=== PATIENT | male | born 1950 | race Caucasian/White ===

== ENCOUNTER 2023-09-27 01:45 | Inpatient (IN) | payer MEDICARE, OTHER ==
[2023-09-27] MEDS ORDERED: Fentanyl CADD 100 ML IV SCH (02:00)
[2023-09-27] MEDS ORDERED: Ipratropium/Albuterol 3 ML NEB ONE (02:02)
[2023-09-27] MEDS ORDERED: Pantoprazole 40 MG VIAL ONE (02:02)
[2023-09-27] MEDS ORDERED: Piperacillin/Tazobactam 3.375 GM VIAL ONE (02:02)
[2023-09-27] MEDS ORDERED: Sodium Chloride 0.9% 100 ML ONE (02:02)
[2023-09-27 02:14] LABS: INR-International Normal Ratio 1.5; Prothrombin Time 18.5 sec (12.0-14.7)
[2023-09-27 02:15] LABS: ALT (SGPT) 77 U/L (8-55); AST (SGOT) 52 U/L (5-34); Albumin 2.8 g/dL (3.4-4.8); Alkaline Phosphatase 152 U/L (40-110); Anion Gap 16 mmol/L (10-20); BUN (Urea Nitrogen) 45 mg/dL (8.4-25.7); Bilirubin, Total 0.7 mg/dL (0.2-1.2); Calc. Creatinine Clearance 0 mL/min (70-130); Calcium 9.2 mg/dL (7.8-10.44); Carbon Dioxide 26 mmol/L (23-31); Chloride 106 mmol/L (98-107); Estimated GFR 78; Globulin 3.5 g/dL (2.4-3.5); Glucose 190 mg/dL (83-110); PTT 26.4 sec (22.9-36.1); Potassium 4.5 mmol/L (3.5-5.1); Protein, Total 6.3 g/dL (5.8-8.1); Sodium 143 mmol/L (136-145)
[2023-09-27 02:19] LABS: Troponin I 0.017 ng/mL (< 0.028)
[2023-09-27 02:20] LABS: Actual Bicarbonate (HCO3a) 27.8 mEq/L (22-28); Analyzer IN Cardio ER; Base Excess (BEa) 0.4 mEq/L (-2.0 to +3.0); CO2 Tension 58.4 mmHg (35.0-45.0); Calcium, Ionized (arterial) 1.21 mmol/L (1.12-1.30); Hematocrit-ABG 35 % (42.0-52.0); Hemoglobin (Hb) 11.9 g/dL (14.0-18.0); O2 Tension (PaO2), arterial 102.2 mmHg (> 70.0); Potassium - ABG Lab 4.29 mmol/L (3.70-5.30); pH, Arterial 7.296 (7.35-7.45)
[2023-09-27 02:22] LABS: Puncture Site RBA
[2023-09-27 02:27] LABS: Bacteria/HPF None Seen HPF (None Seen); Bilirubin Negative (Negative); Blood, Urine 2+ (Negative); CAUTI Indications for Culture Alt mental st,lethar; Clarity Clear (Clear); Glucose, Urine (Dipstick) Normal (Negative); Ketone, Urine Negative (Negative); Leukocyte Negative Leu/uL (Negative); Nitrite Negative (Negative); Protein, Urine (Dipstick) 30 mg/dL (Neg-Trace); RBC/HPF 21-50 HPF (0-3); Squamous Epithelial 0-3 HPF (0-3); pH, Urine 5.5 (5.0-9.0)
[2023-09-27 02:29] LABS: Band 10 % (5-11); Eosinophils 1 % (0-10); Lymphocytes 12 % (21-51); Monocytes 1 % (0-10); Neutrophil 76 % (42-75); Nucleated RBC (Manual Ct) 1 % (0); Platelet Adequacy Comment Platelets Decreased; RBC Morphology Within Normal Limits; Smudge Cells 5.9 %
[2023-09-27 02:30] LABS: Urine Culture Reflex No No
[2023-09-27 02:31] LABS: Hematocrit 34.5 % (42.0-52.0); Hemoglobin 11.3 g/dL (14.0-18.0); Mean Corpuscular HGB CONC 32.7 g/dL (32.0-36.0); Mean Corpuscular Hemoglobin 30.5 pg (27.0-31.0); Mean Corpuscular Volume 93.5 fL (78.0-98.0); Mean Platelet Volume 10.6 fL (7.4-10.4); Platelet Count 55 10x3/uL (130-400); RBC Distribution Width 14.6 % (11.5-14.5)
[2023-09-27] MEDS ORDERED: Propofol 1,000 MG/100 ML VIAL IV ONE (03:23)
[2023-09-27] MEDS ORDERED: Ondansetron PF 4 MG/2 ML Vial IVP PRN (03:30)
[2023-09-27] MEDS ORDERED: Acetaminophen 325 MG TAB PO PRN (03:30)
[2023-09-27] MEDS ORDERED: Ondansetron ODT 4 MG TAB SL PRN (03:30)
[2023-09-27] MEDS ORDERED: Propofol BOLUS 1,000 MG/100 ML VIAL IV PRN (04:00)
[2023-09-27] MEDS ORDERED: Fentanyl BOLUS 250 ML IVPB PRN (04:00)
[2023-09-27] MEDS ORDERED: Propofol 1,000 MG/100 ML VIAL IV PRN (04:00)
[2023-09-27] MEDS ORDERED: Ventilator Sedation Protocol 1 EACH FS SCH (04:00)
[2023-09-27] MEDS ORDERED: Morphine 2 MG/ML VIAL SLOW IVP PRN (04:00)
[2023-09-27] MEDS ORDERED: Lorazepam 2 MG/ML VIAL SLOW IVP PRN (04:00)
[2023-09-27 04:27] LABS: Analyzer IN Cardio ER; Base Excess (BEa) 0.1 mEq/L (-2.0 to +3.0); CO2 Tension 54.5 mmHg (35.0-45.0); Calcium, Ionized (arterial) 1.19 mmol/L (1.12-1.30); Carboxyhemoglobin (COHb) 0.3 gm% (0.0-3.0); Hematocrit-ABG 35 % (42.0-52.0); Hemoglobin (Hb) 11.9 g/dL (14.0-18.0); Potassium - ABG Lab 4.49 mmol/L (3.70-5.30); pH, Arterial 7.313 (7.35-7.45)
[2023-09-27 04:46] VITALS: BMI 25.2
[2023-09-27 04:48] LABS: Actual Bicarbonate (HCO3a) 24.9 mEq/L (22-28); Analyzer IN Cardio ER; Base Excess (BEa) -1.1 mEq/L (-2.0 to +3.0); Carboxyhemoglobin (COHb) 0.2 gm% (0.0-3.0); Hematocrit-ABG 35 % (42.0-52.0); Hemoglobin (Hb) 11.8 g/dL (14.0-18.0); Potassium - ABG Lab 4.58 mmol/L (3.70-5.30); pH, Arterial 7.342 (7.35-7.45)
[2023-09-27 04:52] LABS: Puncture Site RBA
[2023-09-27 04:53] LABS: Puncture Site LBA
[2023-09-27 04:53] LABS: ALV-art Gradient 602.575 mmHg (0-20)
[2023-09-27 05:13] LABS: Hematocrit 34.8 % (42.0-52.0); Hemoglobin 11.2 g/dL (14.0-18.0); Mean Corpuscular HGB CONC 32.2 g/dL (32.0-36.0); Mean Corpuscular Hemoglobin 29.9 pg (27.0-31.0); Mean Corpuscular Volume 92.8 fL (78.0-98.0); Mean Platelet Volume 11.5 fL (7.4-10.4); Platelet Count 50 10x3/uL (130-400); RBC Distribution Width 14.6 % (11.5-14.5); Red Blood Cell (RBC) Count 3.75 mill/uL (4.70-6.10)
[2023-09-27 05:17] LABS: Lactic Acid 3.7 mmol/L (0.5-2.2)
[2023-09-27] MEDS: methylPREDNISolone Sod Succ/PF 125 MG/2 ML VIAL IVP SCH ×2 (05:17→11:03)
[2023-09-27] MEDS: Tranexamic Acid 1,000 MG/10 ML VIAL IVP SCH (05:27)
[2023-09-27 05:39] LABS: Band 7 % (5-11); Large Platelets 0.9 % (0-5); Lymphocytes 2 % (21-51); Monocytes 5 % (0-10); Neutrophil 87 % (42-75); Platelet Adequacy Comment Platelets Decreased; RBC Morphology Within Normal Limits; Smudge Cells 5.6 %
[2023-09-27] MEDS ORDERED: Piperacillin/Tazobactam 4.5 GM in Sodium Chloride 0.9% 100 ML IVPB SCH (06:00)
[2023-09-27] MEDS: EPINEPHrine 1 MG/ML VIAL ONE (06:29)
[2023-09-27] MEDS ORDERED: EPINEPHrine 4 MG in Dextrose 5% in Water 250 ML IVP SCH (06:45)
[2023-09-27] MEDS: Tranexamic Acid 500 MG in Syringe 0 ML NEB SCH ×2 (07:40→07:41)
[2023-09-27] MEDS: Lidocaine 1% w/Epinephrine 1:100K 20 ML VIAL ONE (07:41)
[2023-09-27] MEDS: EPINEPHrine 1 MG/10 ML Abboject SYRINGE ONE (07:41)
[2023-09-27 07:54] LABS: Actual Bicarbonate (HCO3a) 17.5 mEq/L (22-28); Base Excess (BEa) -15.3 mEq/L (-2.0 to +3.0); Calcium, Ionized (arterial) 1.35 mmol/L (1.12-1.30); Potassium - ABG Lab 4.64 mmol/L (3.70-5.30)
[2023-09-27 07:56] LABS: CO2 Tension 74.8 mmHg (35.0-45.0); O2 Tension (PaO2), arterial 35.5 mmHg (> 70.0); pH, Arterial 6.986 (7.35-7.45)
[2023-09-27] MEDS: Sodium Bicarb 50 MEQ/50 ML Abboject 8.4% SYRINGE ONE (08:12)
[2023-09-27] MEDS: Sodium Bicarbonate 150 MEQ in Dextrose 5% in Water 1,000 ML IV SCH (10:22)
[2023-09-27] MEDS: Pantoprazole 40 MG VIAL IVP SCH (10:22)
[2023-09-27] MEDS: NOREPINEPHRINE 8 MG/250 ML-D5W 250 ML ONE (10:22)
[2023-09-27 10:41] LABS: Actual Bicarbonate (HCO3a) 18.6 mEq/L (22-28); Base Excess (BEa) -11.6 mEq/L (-2.0 to +3.0); Calcium, Ionized (arterial) 1.23 mmol/L (1.12-1.30); Carboxyhemoglobin (COHb) 0.3 gm% (0.0-3.0); Hematocrit-ABG 31 % (42.0-52.0); Hemoglobin (Hb) 10.6 g/dL (14.0-18.0); Potassium - ABG Lab 4.25 mmol/L (3.70-5.30)
[2023-09-27 11:02] LABS: CO2 Tension 65.5 mmHg (35.0-45.0); pH, Arterial 7.072 (7.35-7.45)
[2023-09-27] MEDS: Albumin 25% 25 GM (100 mL) BOT IVPB SCH (11:02)
[2023-09-27 11:03] LABS: ALV-art Gradient 598.125 mmHg (0-20); Puncture Site Arterial Line
[2023-09-27] MEDS ORDERED: Vasopressin In 0.9 % NaCl 40 UNIT in Premix 1 BAG IV SCH (11:45)
[2023-09-27] MEDS ORDERED: Vasopressin 20 UNITS, Admixture Fee 1 EACH in Sodium Chloride 0.9% 50 ML IV SCH (11:45)
[2023-09-27 11:53] VITALS: TEMP 97.6
[2023-09-27] MEDS: Sodium Bicarb 50 MEQ/50 ML Abboject 8.4% SYRINGE IVP SCH (11:53)
[2023-09-27] MEDS: Piperacillin/Tazobactam 4.5 GM in Sodium Chloride 0.9% 100 ML IVPB SCH (12:04)
[2023-09-27] MEDS: Piperacillin/Tazobactam 3.375 GM in Sodium Chloride 0.9% 100 ML IVPB SCH (12:08)
[2023-09-27] MEDS: NOREPINEPHRINE 8 MG/250 ML-D5W 250 ML IVPB SCH (12:56)
[2023-09-27] MEDS ORDERED: Sodium Bicarbonate 150 MEQ in Dextrose 5% in Water 1,000 ML IV SCH (13:38)
[2023-09-30 09:33] LABS: O2 Tension (PaO2), arterial 42.3 mmHg (> 70.0)
== END 2023-09-27 17:22 | disposition expired | DRG 208 ==
LOC: ERS 01:45 → CCU 01:47
PROVIDERS: ADMIT Emergency Medicine; ATTEND Emergency Medicine
PROC: 5A12012 Performance of Cardiac Output, Single, Manual (ICD-10-PCS; principal; 2023-09-27)
PROC: 5A1935Z Respiratory Ventilation, Less than 24 Consecutive Hours (ICD-10-PCS; 2023-09-27)
PROC: 05HM33Z Insertion of Infusion Device into Right Internal Jugular Vein, Percutaneous Approach (ICD-10-PCS; 2023-09-27)
PROC: B543ZZA Ultrasonography of Right Jugular Veins, Guidance (ICD-10-PCS; 2023-09-27)
PROC: 03HY32Z Insertion of Monitoring Device into Upper Artery, Percutaneous Approach (ICD-10-PCS; 2023-09-27)
PROC: 4A133B1 Monitoring of Arterial Pressure, Peripheral, Percutaneous Approach (ICD-10-PCS; 2023-09-27)
PROC: 4A133J1 Monitoring of Arterial Pulse, Peripheral, Percutaneous Approach (ICD-10-PCS; 2023-09-27)
PROC: 0B938ZZ Drainage of Right Main Bronchus, Via Natural or Artificial Opening Endoscopic (ICD-10-PCS; 2023-09-27)
PROC: 30233K1 Transfusion of Nonautologous Frozen Plasma into Peripheral Vein, Percutaneous Approach (ICD-10-PCS; 2023-09-27)
PROC: 4A133R1 Monitoring of Arterial Saturation, Peripheral, Percutaneous Approach (ICD-10-PCS; 2023-09-27)
PROC: 3E03329 Introduction of Other Anti-infective into Peripheral Vein, Percutaneous Approach (ICD-10-PCS; 2023-09-27)
PROC: 3E033XZ Introduction of Vasopressor into Peripheral Vein, Percutaneous Approach (ICD-10-PCS; 2023-09-27)
PROC: 30233J1 Transfusion of Nonautologous Serum Albumin into Peripheral Vein, Percutaneous Approach (ICD-10-PCS; 2023-09-27)
PROC: 3E0F8GC Introduction of Other Therapeutic Substance into Respiratory Tract, Via Natural or Artificial Opening Endoscopic (ICD-10-PCS; 2023-09-27)
DX: C34.92 Malignant neoplasm of unspecified part of left bronchus or lung (principal); G93.41 Metabolic encephalopathy; J69.0 Pneumonitis due to inhalation of food and vomit; J96.21 Acute and chronic respiratory failure with hypoxia; C79.31 Secondary malignant neoplasm of brain; K92.0 Hematemesis; R04.2 Hemoptysis; Z51.5 Encounter for palliative care; Z66 Do not resuscitate; J44.9 Chronic obstructive pulmonary disease, unspecified; I25.10 Atherosclerotic heart disease of native coronary artery without angina pectoris; G89.29 Other chronic pain; M54.9 Dorsalgia, unspecified; I46.9 Cardiac arrest, cause unspecified; R00.1 Bradycardia, unspecified; Z99.81 Dependence on supplemental oxygen; Z95.1 Presence of aortocoronary bypass graft; Z98.890 Other specified postprocedural states; Z78.1 Physical restraint status
CPT/HCPCS: 36415; 36430; 36600; 71045; 80053; 81001; 82805; 83605; 83880; 84145; 84484; 85025; 85610; 85730; 86850; 86900; 86901; 87040; 87077; 87086; 93005; 94002; 94760; C9113; J0171; J2543; J2704; J2930; J3010; J3490; J7070; J7620; P9047; P9059